=== PATIENT | female | born 1990 | race Caucasian/White ===

== ENCOUNTER 2020-04-09 06:48 | Outpatient (NON) | payer BC, SELFPAY ==
[2020-04-10 01:02] LABS: SARS-CoV-2 RNA PCR Negative
== END 2020-04-09 06:49 ==
LOC: ANHCOVIDDT 06:48
PROVIDERS: Visit Provider Registered Nurse
DX: Z20.828 Contact with and (suspected) exposure to other viral communicable diseases (principal)
CPT/HCPCS: 87635; C9803; U0003

== ENCOUNTER 2021-11-11 12:29 | Outpatient (CLI) | payer BC, SELFPAY ==
--- NOTE | ~2021-11-11 | CT_ITS ---
EXAMINATION: CT brain wo con DATE: 11/11/2021 12:46 INDICATION: Primary stabbing headache TECHNIQUE: Computed tomography (CT) of the head was performed without intravenous contrast. Sagittal and coronal reconstructions were performed. The mA was adjusted according to patient size. Iterative reconstruction technique was employed. The dose-length product was 605.33 mGy-cm. COMPARISON: None FINDINGS: No acute intracranial hemorrhage, acute infarction or abnormal extra axial fluid collection. Ventricl es are normal and symmetric. No mass/mass effect. The orbits, and paranasal sinuses are normal. Small bilateral mastoid effusions. IMPRESSION: 1. Normal brain. No acute intracranial process. Reviewed, dictated and finalized at location A.
== END 2021-11-11 12:30 | disposition home or self-care (01) ==
PROVIDERS: PCP Registered Nurse; Visit Provider Registered Nurse
DX: G44.85 Primary stabbing headache (principal)
CPT/HCPCS: 70450

== ENCOUNTER 2023-02-02 11:40 | Outpatient (CLI) | payer BC, SELFPAY ==
--- NOTE | 2023-02-02 12:02 | ECG_ITS ---
Measurements Intervals [place] Rate: 87 P: 54 OR: 150 QRS: 9 QRSD: 100 T: 27 QT: 377 QTc: 455 Interpretive Statements SINUS RHYTHM INCOMPLETE RIGHT BUNDLE BRANCH BLOCK BORDERLINE T WAVE ABNORMALITY- INFERIOR LEADS BORDERLINE ECG NO PREVIOUS ECG AVAILABLE FOR COMPARISON Electronically Signed On 02-02-2023 13:04:03 CDT by Caesar House D.O.
[2023-02-02 12:29] LABS: Hematocrit 44.2 % (37.0-47.0); Hemoglobin 14.2 g/dL (12.0-15.0); Mean Corpuscular HGB Conc 32.1 g/dl (32-36); Mean Corpuscular Hemoglobin 27.4 pg (26-34); Mean Corpuscular Volume 85.2 fl (80-100); Platelet Count Result 299 k/mm3 (150-375); Red Blood Count 5.19 M/mm3 (4.2-5.4); Red Cell Distribution Width 13.2 % (11.5-14.5); White Blood Count 11.3 K/mm3 (4.5-10.0)
[2023-02-02 12:46] LABS: Alanine Aminotransferase 33 U/L (6-35); Albumin Level 4.9 g/dL (3.5-5.1); Alkaline Phosphatase 71 U/L (38-126); Anion Gap 10 mmol/L (8-16); Aspartate Amino Transferase 31 U/L (14-36); Bilirubin,Total 0.5 mg/dL (0.2-1.3); Blood Urea Nitrogen 13 mg/dL (7-17); Calcium 9.5 mg/dL (8.4-10.2); Carbon Dioxide 26 mmol/L (22-30); Chloride 101 mmol/L (98-107); Estimated Glomerular Filt Rate > 60; Glucose 87 mg/dL (65-110); Potassium 4.4 mmol/L (3.4-5.0); Sodium 137 mmol/L (137-145)
== END 2023-02-02 11:41 | disposition home or self-care (01) ==
LOC: ANHLAB 11:43
PROVIDERS: PCP Registered Nurse; Visit Provider Registered Nurse
DX: Z01.818 Encounter for other preprocedural examination (principal); I45.10 Unspecified right bundle-branch block
CPT/HCPCS: 36415; 80053; 84443; 85027; 93005

== ENCOUNTER 2023-06-25 15:15 | Outpatient (CLI) | payer BC, SELFPAY ==
--- NOTE | ~2023-06-25 | US_ITS ---
Pelvic ultrasound. Clinical History: Abnormal uterine bleeding Technique: Realtime transabdominal and transvaginal scanning of the pelvis was performed. Color flow Doppler and Doppler spectral analysis were performed. Findings: The uterus is anteverted. The endometrial stripe has a thickness of 10 mm. Questionable ad enomyosis of the uterus. The right ovary measures 3.1 x 2.7 x 2.9 cm. No significant right ovarian or adnexal mass is seen. The left ovary measures 3.3 x 2.4 x 2.9 cm. No significant left ovarian or adnexal mass is seen. There is no evidence of free fluid in the cul de sac. Impression: Questionable adenomyosis of the uterus. Reviewed, dictated and finalized at location M. 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
== END 2023-06-25 15:16 ==
PROVIDERS: PCP Nurse Practitioner; Visit Provider Nurse Practitioner
DX: N93.8 Other specified abnormal uterine and vaginal bleeding (principal)
CPT/HCPCS: 76830

== ENCOUNTER 2023-07-30 00:54 | Day surgery (SDC) | payer BC, SELFPAY ==
[2023-07-23 11:52] VITALS: BMI 30.4
--- NOTE | 2023-07-23 11:58 | PC.NURSE ---
Report to the Outpatient Waiting Room, entrance under the green pavilion located off [facility], at time 0600 on date 07/30/23. Planned Procedure Time: 0730. Time changes happen often and if your time is changed the preop area will call you the afternoon before. - You and your visitor will be asked to self-screen and do not enter if you have any COVID symptoms. - A mask is optional within the hospital at this time. Patients may have clear liquids (water, carbonated beverages, clear teas, apple juice) until 3 hours prior to surgery with a maximum of 20 ounces. - No food from midnight until time of surgery Take the following medications with a SIP of water the morning of surgery: BUSPIRONE DO NOT STOP ANY OF YOUR OTHER PRESCRIPTION MEDICATIONS PRIOR TO SURGERY ?EXCEPT THE FOLLOWING Medications to discontinue per physician: N/A Date to take last dose: N/A Please no make-up, nail mauritanian, hairspray, perfume, deodorant, or body powder the day of surgery. No jewelry (including any body piercings) or valuables the day of surgery, leave them at home. Please take a shower or bath the night before, or the morning of, surgery with an antibacterial soap. Wear comfortable, loose fitting clothing. - Jewelry must be removed prior to entering the operating room. Rings and piercings that are not removed may be cut off. - The hospital will not accept responsibility for valuables. - Please leave all valuables, including medications, at home the day of surgery. If you are going home after surgery, a licensed pack train driver must drive you home. - NO public transportation without another adult if you receive anesthesia. - We recommend that an adult stay with you for 24 hours following discharge. - We also recommend that you do not drive, make important decision, drink alcoholic beverages, or take any drugs that were not prescribed by your health care provider for at least 24 hours after your discharge time. Follow any additional instructions given to you from your surgeon. If you or anyone in your household have experienced Covid symptoms in the past week, please notify your surgeon or the nurse liaison at the phone number below for possible testing. Telephone instructions given to PT - ALMITA MORENO and asked if any additional questions and then verbalized understanding. Patient advised to call surgeon office or pre surgery nurse liaison [phone] if any additional questions.
[2023-07-30] MEDS: ACETAMINOPHEN 500 MG TABLET 1000 MG PO (06:17)
[2023-07-30 06:20] VITALS: BP 126/79; PULSE 72; RESP 16; TEMP 36.7; O2SAT 99
--- NOTE | 2023-07-30 06:37 | WPDANESEPPF ---
Anes - Initial Pre Proc Eval Procedure: Operation Date: 07/30/23 07:30 Proposed Procedures p Hysteroscopy Dilation and Curettage - Thais Siu MD Date/Time: 07/30/23 06:37 Surgeon: Thais Siu MD Pre Op Diagnosis: abnormal uterine bleeding Patient Data Age: 33 Gender: F Height: 1.73 m Weight: 90.75 kg Allergies Allergy/AdvReac Type Severity Reaction Status Date / Time No Known Allergies Allergy Unverified 07/30/23 06:13 Home Medications Medication Instructions Recorded Confirmed Type buspirone 10 mg tablet 10 mg PO BID 07/23/23 07/23/23 History sertraline 100 mg tablet 100 mg PO HS 07/23/23 07/23/23 History spironolactone 25 mg tablet 25 mg PO HS 07/23/23 07/23/23 History tranexamic acid 650 mg tablet 1,300 mg PO TID 07/30/23 07/30/23 History Patient hx anesthesia problems: none Family hx anesthesia problems: none Results Review: All pre-operative results and documents have been reviewed as part of the pre-operative evaluation. 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 Informed Consent: The patient's anesthetic plan and its attendant risks and benefits were discussed with the patient/family/POA. Questions were solicited and answers provided to the satisfaction of the patient/family/POA.
[2023-07-30] MEDS: LACTATED RINGERS 1,000 ML 30 ML IV CONT (06:52)
--- NOTE | 2023-07-30 07:19 | WPDHPUPDATE1 ---
History and Physical Update Update Date/Time: 07/30/23 07:19 History and Physical has been reviewed, including an updated exam of the patient. There are NO changes in the patient's condition. Risks, benefits, and alternatives have been discussed and questions answered. Patient agrees to proceed with procedure.
--- NOTE | 2023-07-30 07:19 | PM.HPGS ---
History of Present Illness History of Present Illness Consent: Risks, benefits, and alternatives have been discussed and questions answered. Patient agrees to proceed with procedure. Chief complaint: abnormal uterine bleeding Narrative: Anastasia Mendes is a 33 year old female with constant bleeding since her weight loss surgery in February of 2023. Flow is varied from spotting to heavy flow. Prior to this point the patient had irregular sporadic cycles. The prior 10 years she has been having only 1 to 2 cycles per year. It was recommended to undergo D&C hysteroscopy. Risks of infection, bleeding, perforation, and possible pathology are discussed with the patient. Patient voices understanding and agrees to proceed. Review of Systems Review of Systems: not repeated day of surgery; patient states no changes in status PMFSH Past Medical History Medical History (Updated 07/30/23 @ 07:23 by Thais Siu MD) Depression with anxiety PCOS (polycystic ovarian syndrome) Surgical History Surgical History (Updated 07/30/23 @ 07:22 by Thais Siu MD) History of weight loss surgery 03/19 Family History Family History Grandparent Diabetes mellitus Father Acute myocardial infarction Social History Social History (Updated 06/03/19 @ 11:30 by Cindy Shaw PA-C) Smoking status: Former smoker Tobacco type: e-cigarettes/vaping Smoking end date: 01/26/23 Alcohol intake: never Substance use: current Substance use type: marijuana Living arrangements: with family 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 [employer] Spiritual care concerns: No Meds Home Medications and Allergies Home Medications Medication Instructions Recorded Confirmed Type buspirone 10 mg tablet 10 mg PO BID 07/23/23 07/23/23 History sertraline 100 mg tablet 100 mg PO HS 07/23/23 07/23/23 History spironolactone 25 mg tablet 25 mg PO HS 07/23/23 07/23/23 History tranexamic acid 650 mg tablet 1,300 mg PO TID 07/30/23 07/30/23 History Allergies Allergy/AdvReac Type Severity Reaction Status Date / Time No Known Allergies Allergy Unverified 07/30/23 06:13 Vital Signs Vital Signs - 24 hr 07/30/23 06:20 Temperature 98.1 F Pulse Rate 72 Respiratory Rate 16 Blood Pressure 126/79 Pulse Oximetry 99 Oxygen Delivery Room Air Exam Const: General: healthy appearing and alert Orientation/consciousness: patient oriented x3 : External Female Exam: normal external appearance Speculum Exam - Vagina: normal appearance of the vagina and normal vaginal discharge Speculum Exam - Cervix: normal appearance of the cervix Bimanual exam- vagina & uterus: uterine size normal and consistency normal Bimanual Exam- Adnexa, other: normal adnexae and No adnexal tenderness Neuro: General: patient oriented x3 Assessment and Plan Assessment and plan (1) Menorrhagia: Code(s): N92.0 - Excessive and frequent menstruation with regular cycle Status: Acute Assessment and Plan: plan to proceed with D&C hysteroscopy
[2023-07-30] MEDS: KETOROLAC 30 MG/ML VIAL (*BKC) IV PUSH (07:52)
--- NOTE | 2023-07-30 07:56 | W.PM.PROC2 ---
Procedure Note - Detailed Date of Procedure 07/30/23 Pre-op Diagnosis abnormal uterine bleeding Post-op Diagnosis Same Procedure Performed D&C hysteroscopy Surgeon Thais Siu MD Anesthesia MAC Findings uterus sounds to 9cm and appears grossly normal old blood clots in vaginal vault and uterus Description of Procedure The patient is taken to the operating room and placed under anesthesia in the dorsal lithotomy position. She was prepped and draped in the usual sterile fashion. [facility] speculum was placed in the vagina and the cervix grasped on the anterior lip with a tenaculum. The uterus is sounded to 9cm. The diagnostic hysteroscope was placed. Once the blood clots are washed out, the endometrium appears grossly normal. The hysteroscope was removed. The OO sharp curette is used to curette the endometrium until a good uterine cry was noted in all areas. Instruments are removed. Sponge, needle, and instrument counts are correct per the OR staff. Patient was awakened from anesthesia and taken to recovery in stable condition. Estimated Blood Loss 5 Drains No Packing No Pathology Yes ( Endometrial curettings) Complications No immediate complications Condition Stable Disposition PACU
[2023-07-30 07:58] VITALS: BP 105/62; PULSE 67; RESP 18; O2SAT 95
[2023-07-30 08:20] VITALS: BP 90/49; PULSE 65; RESP 18; O2SAT 98
[2023-07-30 08:50] VITALS: BP 107/75; PULSE 68; RESP 16
== END 2023-07-30 08:59 | disposition home or self-care (01) ==
PROVIDERS: PCP Nurse Practitioner; Visit Provider Obstetrics & Gynecology Gynecology
PROC: 0U5B8ZZ Destruction of Endometrium, Via Natural or Artificial Opening Endoscopic (ICD-10-PCS; CPT 58563; principal; 2023-07-30 07:30)
DX: N92.0 Excessive and frequent menstruation with regular cycle (principal); E28.2 Polycystic ovarian syndrome; F41.8 Other specified anxiety disorders; F12.90 Cannabis use, unspecified, uncomplicated; E66.9 Obesity, unspecified; Z68.30 Body mass index [BMI] 30.0-30.9, adult; Z98.84 Bariatric surgery status; Z87.891 Personal history of nicotine dependence; Z82.49 Family history of ischemic heart disease and other diseases of the circulatory system
CPT/HCPCS: 58558; 88305; A9270; J1885; J2250; J2704; J3010; J7120

== ENCOUNTER 2024-01-11 08:01 | Outpatient (CLI) | payer BC, SELFPAY ==
[2024-01-11 08:36] LABS: Hematocrit 39.2 % (37.0-47.0); Hemoglobin 12.6 g/dL (12.0-15.0)
== END 2024-01-11 08:02 | disposition home or self-care (01) ==
LOC: ANHSURGERY 08:06
PROVIDERS: PCP Registered Nurse; Visit Provider Obstetrics & Gynecology Gynecology
DX: Z01.812 Encounter for preprocedural laboratory examination (principal); N92.0 Excessive and frequent menstruation with regular cycle
CPT/HCPCS: 36415; 85014; 85018; 86850; 86900; 86901

== ENCOUNTER 2024-01-12 03:35 | Emergency (ER) | payer BC, SELFPAY ==
[2024-01-12] VITALS (11 sets, daily range): BP systolic 111–140; BP diastolic 54–86; PULSE 49–82; RESP 11–20; TEMP 36.4; O2SAT 97–100
--- NOTE | ~2024-01-12 | CT_ITS ---
EXAMINATION: CTA chest PE abdomen pel DATE: 01/12/2024 08:53 INDICATION: Chest pain, abdominal pain and back pain. TECHNIQUE: Computed tomography (CT) pulmonary angiogram of the chest was performed with 100 mL Omnipa que-350 intravenous contrast. Additional 3D reconstructions utilizing coronal maximum intensity proje ction (MIP) were performed. CT of the abdomen and pelvis was performed with intravenous contrast util izing the same contrast bolus following a short delay. Automated exposure control and iterative recon struction technique were employed. The dose-length product was 756.22 mGy-cm. COMPARISON: None FINDINGS: Chest: No pulmonary embolism. No pneumonia, pulmonary edema or other pulmonary infiltrates. No pleural effus ion or pneumothorax. Heart size is normal. No pericardial effusion. Thoracic aorta is normal in calib er with no dissection. No pathologically enlarged thoracic lymphadenopathy. Chronic appearing mild an terior wedging at T7 and T11. Abdomen/pelvis: Postoperative change of prior sleeve gastrectomy with suture line along the greater curvature of the stomach. Mild diffuse periportal edema. Gallbladder is distended but without evident wall thickening or pericholecystic inflammatory stranding to suggest acute cholecystitis. Spleen, pancreas, bilateral adrenal glands and kidneys are normal. Bowels including the appendix are normal. Bladder, anteverted uterus and bilateral adnexa are unremarkable. Tampon within the vaginal vault. Minimal likely physio logic free fluid in the cul-de-sac. No abscess or free intraperitoneal gas. No pathologically enlarge d abdominal or pelvic lymphadenopathy. Bones are unremarkable. IMPRESSION: 1. No pulmonary embolism or other acute cardiopulmonary disease. 2. Diffuse mild periportal edema in the liver. This can be seen in the setting of acute hepatitis, ch olangitis, congestive heart failure, acute pyelonephritis and aggressive fluid resuscitation. Reviewed, dictated and finalized at location A. IMPRESSION: 1. No pulmonary embolism or other acute cardiopulmonary disease. 2. Diffuse mild periportal edema in the liver. This can be seen in the setting of acute hepatitis, cholangitis, congestive heart failure, acute pyelonephritis and aggressive fluid resuscitation.
--- NOTE | ~2024-01-12 | XR_ITS ---
EXAMINATION: XR chest 2V DATE: 01/12/2024 06:12 INDICATION: Midline chest pain TECHNIQUE: PA and lateral views of the chest were obtained. COMPARISON: None FINDINGS: The lungs are clear with no focal airspace opacities, pulmonary edema, pleural effusion or pneumothor ax. The cardiomediastinal silhouette is normal. Mild thoracic spondylosis. Surgical clips and suture line in the epigastric region. IMPRESSION: 1. No acute cardiopulmonary disease. Reviewed, dictated and finalized at location A.
--- NOTE | 2024-01-12 03:40 | ECG_ITS ---
Test Date: 2024-01-12 03:43:18 Measurements Intervals [place] Rate: 74 P: 66 RI: 160 QRS: 57 QRSD: 99 T: 45 QT: 390 QTc: 435 Interpretive Statements SINUS RHYTHM NORMAL ELECTROCARDIOGRAM No previous ECG available for comparison Electronically Signed On 01-12-2024 09:38:31 CDT by Satinder Lema M.D.
--- NOTE | 2024-01-12 06:10 | PC.NURSE ---
Patient taken to xray at this time via w/c.
[2024-01-12 06:36] LABS: Alanine Aminotransferase 79 U/L (6-35); Alkaline Phosphatase 102 U/L (38-126); Anion Gap 12 mmol/L (4-12); Aspartate Amino Transferase 161 U/L (14-36); Bilirubin,Total 0.8 mg/dL (0.2-1.3); Blood Urea Nitrogen 7 mg/dL (7-17); Calcium 9.9 mg/dL (8.4-10.2); Carbon Dioxide 28 mmol/L (22-30); Chloride 102 mmol/L (98-107); Estimated CRCL calculation 98 ml/min; Estimated Glomerular Filt Rate > 60; Glucose 90 mg/dL (65-110); Lipase 106 U/L (23-300); Sodium 142 mmol/L (137-145)
[2024-01-12 06:37] LABS: Basophils Percent Auto 0.2 % (0.2-1.2); Eosinophils Percent Auto 0.3 % (0-4.4); Hematocrit 43.4 % (37.0-47.0); Hemoglobin 14.1 g/dL (12.0-15.0); Immature Granulocyte Absolute 0.02 K/mm3 (0.00-0.031); Immature Granulocyte Percent A 0.2 % (0-0.5); Lymphocytes Absolute Auto 1.67 K/mm3 (0.9-3.2); Lymphocytes Percent Auto 17.2 % (18.3-44.2); Mean Corpuscular HGB Conc 32.5 g/dl (32-36); Mean Corpuscular Hemoglobin 27.9 pg (26-34); Mean Corpuscular Volume 85.9 fl (80-100); Mean Platelet Volume 10.4 fl (7.4-10.4); Monocytes Absolute Auto 0.5 K/mm3 (0.1-0.6); Monocytes Percent Auto 5.6 % (2.6-8.5); Neutrophils Absolute Auto 7.4 K/mm3 (1.3-6.7); Neutrophils Percent Auto 76.5 % (45.5-73.1); Platelet Count Result 240 k/mm3 (150-375); Red Blood Count 5.05 M/mm3 (4.2-5.4); Red Cell Distribution Width 13.2 % (11.5-14.5); White Blood Count 9.7 K/mm3 (4.5-10.0)
[2024-01-12 06:42] LABS: INR 1.1; Prothrombin Time 14.2 Seconds (11.1-14.7)
[2024-01-12 06:43] LABS: Partial Thromboplastin Time 25.9 Seconds (22.3-36.8)
[2024-01-12 06:47] LABS: Troponin I < 0.012 ng/mL (0.000-0.034)
--- NOTE | 2024-01-12 07:42 | ED.CHESTPAIN ---
HPI - Chest Pain General Chief Complaint: Chest Pain Stated Complaint: chest pain Time Seen by Provider: 01/12/24 06:51 History of Present Illness HPI narrative: [age] old female presents to the emergency department for evaluation for chest pain that started approximately 2:00 a.m.. Patient states she was sleeping when she had onset epigastric burning. Patient states that the burning worsened to the point where she was lying on her floor crying. Did call a family member to help her to the emergency department. 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 Patient did state that she did have some drinks over the past 2 days which was increased a little for her. Related Data Home Medications Medication Instructions Recorded Confirmed sertraline 100 mg tablet 100 mg PO DAILY 07/23/23 01/07/24 levonorgestrel 0.1 mg-ethinyl 1 tablet PO DAILY 01/07/24 01/07/24 estradiol 20 mcg chewable tablet (Tyblume) Allergies Allergy/AdvReac Type Severity Reaction Status Date / Time No Known Allergies Allergy Verified 01/12/24 03:39 Review of Systems Review of Systems: All systems reviewed & are unremarkable except as noted in HPI and below PMFSH Past Medical History Medical History (Updated 01/12/24 @ 11:55 by Polo Brewer MD) Depression with anxiety PCOS (polycystic ovarian syndrome) Surgical History Surgical History (Updated 07/30/23 @ 07:22 by Thais Siu MD) History of weight loss surgery 03/19 Family History Family History Grandparent Diabetes mellitus Father Acute myocardial infarction Social History Social History (Updated 06/03/19 @ 11:30 by Cindy Shaw PA-C) Years smoked: 6 Smoking status: Current every day smoker Tobacco type: e-cigarettes/vaping Alcohol intake: current Drinks per week: 5 Living arrangements: alone 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 EYES: PERRLA/EOMI, conjunctivae clear. NOSE: Normal no drainage EARS:TMS clear with good light reflex. THROAT: Pharynx clear, no exudate. NECK: Supple. No adenopathy, no masses. RESPIRATORY: Airway patent, respirations nonlabored. Clear to auscultation bilaterally, no rales, rhonchi, wheezing. CARDIOVASCULAR: Regular rate and rhythm without murmurs rubs or gallops. ABDOMINAL: Mild epigastric tenderness to palpation MUSCULOSKELETAL: Moves all extremities. Strength/ROM intact, No edema, No calf tenderness. NEURO: Alert. Cranial nerves II through XII intact. Grossly intact SKIN: Warm, dry. Normal Color Course Course Emergency Course: Patient fell improved with treatment and was discharged to home with GI Vital Signs Vital signs: Vital Signs Temperature 97.6 F 01/12/24 03:36 Pulse Rate 78 01/12/24 03:36 Respiratory Rate 18 01/12/24 03:36 Blood Pressure 129/67 01/12/24 03:36 Pulse Oximetry 100 01/12/24 03:36 Oxygen Delivery Room Air 01/12/24 03:36 Temperature 97.6 F 01/12/24 03:36 Pulse Rate 54 L 01/12/24 12:20 Respiratory Rate 16 01/12/24 12:20 Blood Pressure 111/75 01/12/24 12:20 Pulse Oximetry 99 01/12/24 12:20 Oxygen Delivery Room Air 01/12/24 03:36 MDM - Chest Pain MDM Narrative Medical decision making narrative: [age] old female presenting to the emergency department for evaluation for epigastric and chest pain. Patient is currently afebrile with no leukocytosis and a stable hemoglobin of 14.1. Patient's INR is 1.1. Patient has no acute abnormalities on her CMP patient does have mildly elevated AST and ALT. Patient does admit to drinking the last [address] scan was concerning for possible cystitis but UA was negative for
[2024-01-12] MEDS: BELLADONNA ALK/PHENOB ELIX 10 ML, MAG HYDROX/ALUMINUM HYD/SIMETH 30 ML, LIDOCAINE HCL 2... PO (07:49)
[2024-01-12] MEDS: PANTOPRAZOLE SODIUM IV 40 MG VIAL IV PUSH (07:49)
[2024-01-12] MEDS: HYDROmorphone HCL INJ (*CRX) 1 MG/ML SYR 0.5 MG IV PUSH (08:52)
[2024-01-12 09:40] LABS: Ethanol < 10 mg/dL (<10)
[2024-01-12 09:51] LABS: Troponin I < 0.012 ng/mL (0.000-0.034)
[2024-01-12 11:07] LABS: Add Urine Microscopic? NO; Appearance Urine Clear (Clear); Bilirubin Urine Negative (Negative); Blood Urine Negative (Negative); Color Urine Yellow (Yellow); Glucose Urine UA Negative (Negative); Ketones Urine Negative (Negative); Leukocyte Esterase Ur Negative LEU/UL (Negative); Nitrate Urine Negative (Negative); Protein Urine Negative (Negative); Specific Grav Ur 1.015 (1.001-1.035); pH Urine 6.5 (5.0-9.0)
== END 2024-01-12 12:20 | disposition home or self-care (01) ==
PROVIDERS: Student in an Organized Health Care Education/Training Program; Emergency Provider Emergency Medicine; PCP Registered Nurse
DX: R10.13 Epigastric pain (principal); E28.2 Polycystic ovarian syndrome; F41.8 Other specified anxiety disorders; F17.290 Nicotine dependence, other tobacco product, uncomplicated; Z98.84 Bariatric surgery status; Z79.899 Other long term (current) drug therapy; R93.2 Abnormal findings on diagnostic imaging of liver and biliary tract
CPT/HCPCS: 36415; 71046; 71275; 74177; 80053; 80307; 81003; 83690; 84484; 85025; 85610; 85730; 93005; 96374; 96375; 99284; A9270; J1170; J2470; Q9967

== ENCOUNTER 2024-01-14 11:08 | Inpatient (IN) | payer BC, SELFPAY ==
--- NOTE | 2024-01-07 10:44 | SUR.PREOP ---
Report to the Outpatient Waiting Room, entrance under the green pavilion located off [facility], at time 0600 on date 01/14/24. Planned Procedure Time: 0730. Time changes happen often and if your time is changed the preop area will call you the afternoon before. - You and your visitor will be asked to self-screen and do not enter if you have any COVID symptoms. - A mask is optional within the hospital at this time. Patients may have clear liquids (water, carbonated beverages, clear teas, apple juice) until 3 hours prior to surgery with a maximum of 20 ounces. - NO CLEAR LIQUIDS AFTER 0430 - No food from midnight until time of surgery - Infants may have breast milk until 4 hours before surgery, formula 6 hours prior to surgery. - Children will be allowed to drink immediately following surgery. If applicable, please bring a bottle or sippy cup to assist with drinking. Juice, water, soda, and popsicles are readily available. For infants on formula, please bring formula the day of surgery. Pacifiers are allowed. Take the following medications with a SIP of water the morning of surgery: SERTRALINE, TYBLUME DO NOT STOP ANY OF YOUR OTHER PRESCRIPTION MEDICATIONS PRIOR TO SURGERY ?EXCEPT THE FOLLOWING Medications to discontinue per physician N/A Date to take last dose Please no make-up, nail malay, hairspray, perfume, deodorant, or body powder the day of surgery. No jewelry (including any body piercings) or valuables the day of surgery, leave them at home. Please take a shower or bath the night before, or the morning of, surgery with an antibacterial soap. Wear comfortable, loose fitting clothing. Children are encouraged to wear pajamas. - Jewelry must be removed prior to entering the operating room. Rings and piercings that are not removed may be cut off. - The hospital will not accept responsibility for valuables. - Please leave all valuables, including medications, at home the day of surgery. If you are going home after surgery, a licensed cdl a driver must drive you home. - NO public transportation without another adult if you receive anesthesia. - We recommend that an adult stay with you for 24 hours following discharge. - We also recommend that you do not drive, make important decision, drink alcoholic beverages, or take any drugs that were not prescribed by your health care provider for at least 24 hours after your discharge time. For Pediatric surgeries, we recommend two adults accompany the child home. Follow any additional instructions given to you from your surgeon. If you or anyone in your household have experienced Covid symptoms in the past week, please notify your surgeon or the nurse liaison at the phone number below for possible testing. Telephone instructions given to CHRIS MORENO and asked if any additional questions and then verbalized understanding. Patient advised to call surgeon office or pre surgery nurse liaison [phone] if any additional questions.
[2024-01-07 10:55] VITALS: BMI 23.6
[2024-01-14] VITALS (18 sets, daily range): BP systolic 107–157; BP diastolic 70–96; PULSE 55–83; RESP 12–20; TEMP 36.3–37.9; O2SAT 94–100; BMI 22.6
[2024-01-14] MEDS: KETOROLAC 15 MG/ML VIAL (*BKC) IV PUSH (06:35)
[2024-01-14] MEDS: ACETAMINOPHEN 500 MG TABLET 1000 MG PO (06:35)
[2024-01-14] MEDS: LACTATED RINGERS 1,000 ML 30 ML IV CONT ×3 (06:56→10:56)
--- NOTE | 2024-01-14 06:58 | P.PNAN_ITS ---
Anes - Initial Pre Proc Eval Procedure: Operation Date: 01/14/24 07:30 Proposed Procedures p Total Abdominal Hysterectomy - Thais Siu MD Date/Time: 01/14/24 06:58 Surgeon: Thais Siu MD Pre Op Diagnosis: Menorrhagia Patient Data Age: 33 Gender: F Height: 1.73 m Weight: 67.6 kg Last Vital Signs Temp 97.3 F L 01/14/24 06:45 Pulse 83 01/14/24 06:45 Resp 16 01/14/24 06:45 BP 119/75 01/14/24 06:45 Pulse Ox 99 01/14/24 06:45 O2 Del Method Room Air 01/14/24 06:45 Allergies Allergy/AdvReac Type Severity Reaction Status Date / Time No Known Allergies Allergy Verified 01/14/24 06:33 Home Medications Medication Instructions Recorded Confirmed Type sertraline 100 mg tablet 100 mg PO DAILY 07/23/23 01/14/24 History levonorgestrel 0.1 mg-ethinyl 1 tablet PO DAILY 01/07/24 01/07/24 History estradiol 20 mcg chewable tablet (Tyblume) omeprazole 20 mg capsule,delayed 20 mg PO DAILY 14 days #14 caps 01/12/24 Rx release Patient hx anesthesia problems: other (Pt reports occ delayed emergence in the past, nothing that required unexpected admission. ) Family hx anesthesia problems: none Results Review: All pre-operative results and documents have been reviewed as part of the pre- operative evaluation. 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 Pt active w 1-2 fos, no cp or sob. Pt vapes daily. Informed Consent: The patient's anesthetic plan and its attendant risks and benefits were discussed with the patient/family/POA. Questions were solicited and answers provided to the satisfaction of the patient/family/POA.
--- NOTE | 2024-01-14 07:01 | WPDHPUPDATE1 ---
History and Physical Update Update Date/Time: 01/14/24 07:01 History and Physical has been reviewed, including an updated exam of the patient. There are NO changes in the patient's condition. Risks, benefits, and alternatives have been discussed and questions answered. Patient agrees to proceed with procedure.
--- NOTE | 2024-01-14 07:01 | PM.IMHP ---
H&P: HPI History of Present Illness Date/Time: 01/14/24 07:01 Chief Complaint: Menorrhagia Narrative: The patient is a 33-year-old with menorrhagia. The patient underwent D&C hysteroscopy benign findings. Pelvic ultrasound shows adenomyosis. Patient tried combination vaginal ring as well as Lysteda without help. Options were reviewed and patient has elected to proceed with hysterectomy. Route of surgery was discussed and the plan is to proceed with total abdominal hysterectomy. Risks of infection, bleeding, perforation, and possible pathology are discussed. Patient voices understanding and agrees to proceed. Review of Systems Review of Systems: not repeated day of surgery; patient states no changes in status PMF Past Medical History Medical History Depression with anxiety PCOS (polycystic ovarian syndrome) Surgical History Surgical History (Updated 01/14/24 @ 07:05 by Thais Siu MD) History of hysteroscopy July of 2023 History of weight loss surgery 03/19 Family History Family History Grandparent Diabetes mellitus Father Acute myocardial infarction Social History Social History Years smoked: 6 Smoking status: Current every day smoker Tobacco type: e-cigarettes/vaping Alcohol intake: current Drinks per week: 5 Living arrangements: alone 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 Spiritual care concerns: No Meds Home Medications and Allergies Home Medications Medication Instructions Recorded Confirmed Type sertraline 100 mg tablet 100 mg PO DAILY 07/23/23 01/14/24 History levonorgestrel 0.1 mg-ethinyl 1 tablet PO DAILY 01/07/24 01/07/24 History estradiol 20 mcg chewable tablet (Tyblume) omeprazole 20 mg capsule,delayed 20 mg PO DAILY 14 days #14 caps 01/12/24 Rx release Allergies Allergy/AdvReac Type Severity Reaction Status Date / Time No Known Allergies Allergy Verified 01/14/24 06:33 Vital Signs Vital Signs - 24 hr 01/14/24 06:45 Temperature 97.3 F L Pulse Rate 83 Respiratory Rate 16 Blood Pressure 119/75 Pulse Oximetry 99 Oxygen Delivery Room Air Exam Const: General: healthy appearing and alert Orientation/consciousness: patient oriented x3 Resp: Effort & Inspection: normal respiratory effort GI: GI Palp: Yes Soft to palpation, No Tenderness to palpation present (GI) and No Palpable mass present : External Female Exam: normal external appearance Speculum Exam - Vagina: normal appearance of the vagina and normal vaginal discharge Speculum Exam - Cervix: normal appearance of the cervix Bimanual exam- vagina & uterus: uterine size normal and consistency normal Bimanual Exam- Adnexa, other: normal adnexae and No adnexal tenderness Neuro: General: patient oriented x3 Assessment and Plan Assessment and plan (1) Menorrhagia: Code(s): N92.0 - Excessive and frequent menstruation with regular cycle Status: Acute Assessment and Plan: plan to proceed with total abdominal hysterectomy
[2024-01-14] MEDS: ceFAZolin 2 GM/D5W 50 ML 2 GM/50 ML BAG IVPB (07:21)
--- NOTE | 2024-01-14 08:31 | W.PM.PROC2 ---
Procedure Note - Detailed Date of Procedure 01/14/24 Pre-op Diagnosis Menorrhagia Post-op Diagnosis Same Procedure Performed Total abdominal hysterectomy Surgeon Thais Siu MD Anesthesia General Findings normal-appearing tubes, ovaries, uterus Description of Procedure The patient is taken to the operating room and placed under anesthesia in the dorsal supine position. She was prepped and draped in the usual sterile fashion. Pfannenstiel skin incision was made with a scalpel and carried down to underlying layer of fascia which was nicked in the midline. Bleeding vessels in the subcutaneous tissue were cauterized for hemostasis. The incision was extended laterally with Sheridan scissors. Ochsner was used to tent the fascia which was then dissected off using sharp and blunt dissection. The rectus muscles are in the midline and the peritoneum entered with a Peon. The incision was extended with blunt traction. The bowel was packed away using moist laparotomy sponges. The Bertrand retractor was placed with a flexible center blade. The uterus is grasped on the cornu with peons. The round ligaments were doubly ligated with 0 Vicryl, transected, and the anterior leaf of the broad ligament incised meeting in the midline. The bladder flap was dissected off the lower uterine segment with a moist sponge stick. A Skip is used to retract the bladder. A window was created in the posterior leaf of the broad ligament and the utero-ovarian ligament doubly clamped with Z clamps. The pedicle it is transected and suture ligated with 0 Vicryl. The uterine vessels are skeletonized, clamped with Z clamps, transected, and suture ligated with 0 Vicryl. The cardinal and uterosacral ligaments are serially clamped, transected, and suture ligated with 0 Vicryl. The uterosacral ligaments were tagged for future use. The vaginal cuff was entered anteriorly with the scalpel. The vaginal cuff was grasped with Allis clamps as specimen was amputated using Sameera scissors. The specimen is handed off and the vaginal cuff was closed using 0 Vicryl in a running locked fashion. Two additional [id number] sutures were required in the midline for hemostasis. The pelvis is irrigated all pedicles were noted to be hemostatic. Sponges and instruments are removed. The fascia was closed using 0 Vicryl in a running fashion. Subcutaneous tissues were irrigated and made hemostatic using Bovie cautery. Skin is closed using 4-0 Vicryl in a subcuticular fashion. Dermaflex was placed over the incision. Sponge, needle, and instrument counts are correct per the OR staff. The patient was awakened from anesthesia and taken to recovery in stable condition. The patient was given Ancef prior to incision. Estimated Blood Loss 50 Drains Yes ( Marc catheter) Packing No Pathology Yes ( uterus) Complications No immediate complications Condition Stable Disposition PACU
--- NOTE | 2024-01-14 08:36 | PM.DS ---
DS: Admitting Diagnosis Discharge Date 01/17/24 Admitting Diagnosis menorrhagia with suspected adenomyosis DS: Discharge Diagnosis Discharge Diagnosis (1) Status post total abdominal hysterectomy: Code(s): Z90.710 - Acquired absence of both cervix and uterus Status: Acute DS: Summary Hospital Course Hospital Course: Post operatively the patient had significant nausea and borderline urine output. Postoperative day 1 Hemoglobin was 6.9. Patient returned to the operating room for exploratory laparotomy. No active bleeding was identified and [id number] of clot was evacuated. The vaginal cuff and the peritoneum near the ovaries were oversewn. Patient did receive 3units of packed red blood cells. At the time of discharge, the patient was tolerating regular diet, voiding, and ambulating without difficulty. Pain is under good control. Patient had elevated liver function tests on 01/11 after an episode of gastric distress and drinking alcohol. Her liver function tests have normalized during hospital stay but it is recommended she follow-up with her primary physician and to abstain from alcohol. Status at Discharge Functional status at discharge: independent ambulation Overall status at discharge: patient is progressing back to baseline Time Spent with Patient Time attestation: Total time spent providing and/or coordinating discharge services: DS: Data Data Completed and Pending Pending studies at discharge: Pending at discharge 01/14/24 08:09 Surgical [PTH] Routine Discharge Plan Discharge Attending physician on discharge: Thais Siu Consulting providers: Reymundo Ahuja; Darius Cody; Scarlet Reyes; Raúl Erickson Discharging Clinician: Thais Siu Anticipated Discharge Date/Time: 01/16/24 07:42 Patient Disposition: Home, Self-Care Activity: may shower, may drive after 2 weeks and pelvic rest Diet: as tolerated Wound Care Instructions: incision open to air Patient Instructions: Hysterectomy (DC), Exploratory Laparotomy (DC) Stand Alone Forms: General Discharge Instructions Follow-up/Referrals: Thais Siu MD [Physician] - (1 week incision check) Discharge Medications: New hydrocodone-acetaminophen 5-325 mg Tablet 1 tablet PO Q3H PRN (Reason: Pain Rated 5 Or Less) 7 Days Qty: 15 0RF ferrous sulfate [Feosol] 325 mg (65 mg iron) tablet 325 mg PO BID Qty: 60 1RF Continued sertraline 100 mg tablet 100 mg PO DAILY omeprazole 20 mg capsule,delayed release(DR/EC) 20 mg PO DAILY 14 Days Qty: 14 0RF Discontinued Tyblume 0.1 mg- 20 mcg Tablet,Chewable 1 tablet PO DAILY Date of admission: 01/14/24 11:08 Primary Care Provider: Kari,Chelsie Admitting Provider: Thais Siu Attending physician on admission: Thais Siu Condition: Stable
[2024-01-14] MEDS: fentaNYL CITRATE INJ (*CRX) 100 MCG/2 ML VIAL 25 MCG IV PUSH ×8 (09:15→11:04)
[2024-01-14] MEDS: HYDROmorphone HCL INJ (*CRX) 1 MG/ML SYR 0.25 MG IV PUSH ×4 (10:02→10:10)
[2024-01-14 10:33] LABS: BEDSIDEPREGUCG Negative
[2024-01-14] MEDS: FAMOTIDINE 20 MG TABLET PO (11:44)
[2024-01-14] MEDS: SIMETHICONE 80 MG TAB.CHEW PO ×2 (11:44→16:47)
[2024-01-14] MEDS: DEXTROSE 5%/LACTATED RINGERS 1,000 ML 125 ML IV CONT ×3 (11:45→23:35)
[2024-01-14] MEDS: KETOROLAC 30 MG/ML VIAL (*BKC) IV PUSH ×2 (11:45→19:28)
--- NOTE | 2024-01-14 14:03 | ADMGEN ---
1115-This patient, Anastasia Mendes, was admitted to OB 2nd Floor Room 289-00. Patient/family oriented to hospital policies and general routines including ID bracelet, bed and alarms, visiting hours, pain management, procedures, bathroom and other care routines, personal items, smoking policy, room service/diet, and visiting hours. Information on how to activate the Rapid Response Team has been discussed. Patient/Family are encouraged to report perceived risks to care and to ask questions if they do not understand what they are told or what they should do.
[2024-01-14] MEDS: ONDANSETRON INJ 4 MG/2 ML VIAL IV PUSH ×2 (14:13→19:22)
[2024-01-14] MEDS: HYDROcodone/acetaminophen (*CRX) 10-325 MG TABLET 1 TAB PO (15:12)
[2024-01-14] MEDS: PROCHLORPERAZINE EDISYLATE 10 MG/2 ML VIAL IV PUSH (22:28)
[2024-01-15] VITALS (11 sets, daily range): BP systolic 104–147; BP diastolic 53–88; PULSE 71–106; RESP 16–18; TEMP 36.5–38.3; O2SAT 96–100
[2024-01-15] MEDS: HYDROcodone/acetaminophen (*CRX) 5-325 MG TABLET 1 TAB PO ×4 (00:27→20:50)
[2024-01-15] MEDS: FAMOTIDINE 20 MG TABLET PO ×3 (00:27→20:51)
[2024-01-15] MEDS: KETOROLAC 30 MG/ML VIAL (*BKC) IV PUSH (01:40)
[2024-01-15] MEDS: HYDROcodone/acetaminophen (*CRX) 10-325 MG TABLET 1 TAB PO (03:36)
[2024-01-15] MEDS: DEXTROSE 5%/LACTATED RINGERS 1,000 ML 200 ML IV CONT (04:08)
[2024-01-15] MEDS: FUROSEMIDE INJ 40 MG/4 ML VIAL 10 MG IV PUSH (04:29)
[2024-01-15 05:51] LABS: Basophils Percent Auto 0.1 % (0.2-1.2); Hematocrit 21.7 % (37.0-47.0); Immature Granulocyte Absolute 0.07 K/mm3 (0.00-0.031); Immature Granulocyte Percent A 0.5 % (0-0.5); Lymphocytes Absolute Auto 1.83 K/mm3 (0.9-3.2); Lymphocytes Percent Auto 13.7 % (18.3-44.2); Mean Corpuscular HGB Conc 31.8 g/dl (32-36); Mean Corpuscular Hemoglobin 27.8 pg (26-34); Mean Corpuscular Volume 87.5 fl (80-100); Mean Platelet Volume 10.8 fl (7.4-10.4); Monocytes Absolute Auto 1.1 K/mm3 (0.1-0.6); Neutrophils Absolute Auto 10.4 K/mm3 (1.3-6.7); Neutrophils Percent Auto 77.7 % (45.5-73.1); Platelet Count Result 260 k/mm3 (150-375); Red Blood Count 2.48 M/mm3 (4.2-5.4); Red Cell Distribution Width 13.2 % (11.5-14.5); White Blood Count 13.4 K/mm3 (4.5-10.0)
[2024-01-15 06:00] LABS: Hemoglobin 6.9 g/dL (12.0-15.0)
--- NOTE | 2024-01-15 06:45 | PC.NURSE ---
To OR per bed, IV saline locked.
--- NOTE | 2024-01-15 06:57 | PM.GYNPNOP ---
TELECASTING TECHNICIAN - A/P Assessment and plan (1) Postoperative hemorrhage: Status: Acute Assessment and Plan: Although vital signs have been stable throughout the postoperative, the patient a hemoglobin of 6.6. Patient with a likely intra-abdominal bleed. Plan to proceed to the operating room for exploratory laparotomy. Surgery discussed with the patient and she agrees to proceed. Postoperative Procedures: Procedures Operation Date: 01/14/24 07:30 Actual Procedure Side Surgeon p Total Abdominal Hysterectomy Not Applicable Thais Siu MD Operation Date: 01/15/24 07:30 <No data on this case meets the specified criteria> Postoperative day: 1 Postoperative status: anemia (Hb 6.6) Time Spent With Patient Time: Total time spent is greater than 50% in coordination of care (as documented) at patient's floor/unit and/or counseling patient: Time with patient: less than 15 minutes TELECASTING TECHNICIAN- PN:Subj Post-Op Subjective Date/time seen: 01/15/24 06:57 Subjective: pain is well controlled and patient reports nausea (Pre of medication) Exam Narrative: abdomen soft, nt, nd peripad-dry TELECASTING TECHNICIAN - PN: Obj Data Vital Signs Vital Signs: Vital Signs - 24 hr 01/14/24 08:38 01/14/24 08:45 01/14/24 09:00 Temperature 97.8 F Pulse Rate 72 55 L 55 L Respiratory Rate 12 19 20 Blood Pressure 157/84 H 148/86 H 148/86 H Pulse Oximetry 100 100 100 Oxygen Delivery Simple Face Mask Simple Face Mask Simple Face Mask Oxygen Flow Rate 8 8 8 01/14/24 09:15 01/14/24 09:30 01/14/24 09:45 Temperature Pulse Rate 56 L 57 L 59 L Respiratory Rate 17 16 17 Blood Pressure 154/96 H 138/74 149/70 H Pulse Oximetry 100 100 95 Oxygen Delivery Simple Face Mask Simple Face Mask Room Air Oxygen Flow Rate 8 8 01/14/24 10:00 01/14/24 10:15 01/14/24 10:30 Temperature Pulse Rate 67 61 60 Respiratory Rate 12 16 17 Blood Pressure 155/78 H 151/83 H 149/82 H Pulse Oximetry 96 94 95 Oxygen Delivery Room Air Room Air Room Air Oxygen Flow Rate 01/14/24 10:45 01/14/24 11:00 01/14/24 11:20 Temperature 98.7 F Pulse Rate 72 60 62 Respiratory Rate 12 14 16 Blood Pressure 145/88 H 132/77 140/79 Pulse Oximetry 95 100 100 Oxygen Delivery Room Air Nasal Cannula Oxygen Flow Rate 2 01/14/24 12:00 01/14/24 14:15 01/14/24 16:15 Temperature 98.1 F 97.9 F Pulse Rate 62 64 Respiratory Rate 16 16 Blood Pressure 119/79 Pulse Oximetry 100 100 Oxygen Delivery Nasal Cannula Oxygen Flow Rate 2 01/14/24 16:15 01/14/24 18:35 01/14/24 23:55 Temperature 98.5 F 100.3 F H Pulse Rate 64 76 75 Respiratory Rate 16 16 16 Blood Pressure 107/78 128/90 Pulse Oximetry 100 100 100 Oxygen Delivery Nasal Cannula Oxygen Flow Rate 1 01/15/24 03:35 Temperature 100.9 F H Pulse Rate 92 Respiratory Rate 16 Blood Pressure 124/78 Pulse Oximetry 98 Oxygen Delivery Oxygen Flow Rate Intake/Output Intake/Output: Intake & Output 01/12/24 01/13/24 01/14/24 01/15/24 23:59 23:59 23:59 23:59 Intake Total 3695.0 618.8 Output Total 460 105 Balance 3235.0 513.8 Meds/Results Medications: Active Medications Generic Name Dose Route Start Last Admin Trade Name Freq PRN Reason Stop Dose Admin Hydrocodone Bitart/Acetaminophen 1 tab 01/14/24 11:08 01/15/24 03:36 Hydrocodone/Acetaminophen (*Crx) 10-325 Mg Tablet PO 1 tab Q3H PRN Administration Pain Rated 6 or Greater Hydrocodone Bitart/Acetaminophen 1 tab 01/14/24 11:08 01/15/24 00:27 Hydrocodone/Acetaminophen (*Crx) 5-325 Mg Tablet PO 1 tab Q3H PRN Administration Pain Rated 5 or Less Famotidine 20 mg 01/15/24 00:25 01/15/24 00:27 Famotidine 20 Mg Tablet PO 20 mg Q12HR LEONIDAS Administration Dextrose/Lactated Ringer's 1,000 mls @ 200 mls/hr 01/14/24 11:08 01/15/24 04:08 Dextrose 5%/Lactated Ringers IV CONT 200 mls/hr .Q5H LEONIDAS Administration Ibuprofen 600 mg 01/14/24 11:08 Ibuprofen 600 Mg Tablet P
[2024-01-15] MEDS: LACTATED RINGERS 1,000 ML 30 ML IV CONT ×2 (07:00→08:45)
--- NOTE | 2024-01-15 07:19 | WPDANESEPPF ---
Anes - Initial Pre Proc Eval Procedure: Operation Date: 01/14/24 07:30 Proposed Procedures p Total Abdominal Hysterectomy - Thais Siu MD Operation Date: 01/15/24 07:30 Proposed Procedures p Exploratory Laparotomy - Thais Siu MD Date/Time: 01/15/24 07:19 Surgeon: Thais Siu MD Pre Op Diagnosis: Menorrhagia Patient Data Age: 33 Gender: F Height: 1.73 m Weight: 67.6 kg Last Vital Signs Temp 100.9 F H 01/15/24 03:35 Pulse 92 01/15/24 03:35 Resp 16 01/15/24 03:35 BP 124/78 01/15/24 03:35 Pulse Ox 98 01/15/24 03:35 O2 Del Method Nasal Cannula 01/14/24 16:15 O2 Flow Rate 1 01/14/24 16:15 Allergies Allergy/AdvReac Type Severity Reaction Status Date / Time No Known Allergies Allergy Verified 01/14/24 06:33 Home Medications Medication Instructions Recorded Confirmed Type sertraline 100 mg tablet 100 mg PO DAILY 07/23/23 01/14/24 History levonorgestrel 0.1 mg-ethinyl 1 tablet PO DAILY 01/07/24 01/07/24 History estradiol 20 mcg chewable tablet (Tyblume) omeprazole 20 mg capsule,delayed 20 mg PO DAILY 14 days #14 caps 01/12/24 Rx release Laboratory Tests 01/14/24 01/15/24 06:30 05:35 WBC 13.4 H K/mm3 (4.5-10.0) RBC 2.48 L M/mm3 (4.2-5.4) Hgb 6.9 L* D g/dL (12.0-15.0) Hct 21.7 L % (37.0-47.0) MCV 87.5 fl (80-100) MCH 27.8 pg (26-34) MCHC 31.8 L g/dl (32-36) RDW 13.2 % (11.5-14.5) Plt Count 260 k/mm3 (150-375) MPV 10.8 H fl (7.4-10.4) Immature Gran % (Auto) 0.5 % (0-0.5) Neut % (Auto) 77.7 H % (45.5-73.1) Lymph % (Auto) 13.7 L % (18.3-44.2) Sanborn % (Auto) 8.0 % (2.6-8.5) Eos % (Auto) 0.0 % (0-4.4) Baso % (Auto) 0.1 L % (0.2-1.2) Lymph # (Auto) 1.83 K/mm3 (0.9-3.2) Sanborn # (Auto) 1.1 H K/mm3 (0.1-0.6) Eos # (Auto) 0.0 K/mm3 (0-0.3) Baso # (Auto) 0.0 K/mm3 (0.0-0.1) Abs Immat Gran (auto) 0.07 H K/mm3 (0.00-0.031) Absolute Neuts (auto) 10.4 H K/mm3 (1.3-6.7) Absolute Nucleated RBC 0.000 K/mm3 (0.0-0.012) Nucleated RBC % 0.0 % (0.0-0.2) POC Urine HCG, Qual Negative POC Ur Preg QC Yes Patient hx anesthesia problems: other (Pt reports occ delayed emergence in the past, nothing that required unexpected admission. ) Family hx anesthesia problems: none Results Review: All pre-operative results and documents have been reviewed as part of the pre-operative evaluation. REPLACED BY [facility] Past Medical History Medical History (Updated 01/15/24 @ 06:58 by Thais Siu MD) Depression with anxiety PCOS (polycystic ovarian syndrome) Surgical History Surgical History (Updated 01/14/24 @ 08:36 by Thais Siu MD) History of hysteroscopy July of 2023 History of weight loss surgery 03/19 Family History Family History Grandparent Diabetes mellitus Father Acute myocardial infarction Social History Social History Years smoked: 6 Smoking status: Current every day smoker Tobacco type: e-cigarettes/vaping Alcohol intake: current Drinks per week: 5 Living arrangements: alone 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
[2024-01-15] MEDS: ceFAZolin 2 GM/D5W 50 ML 2 GM/50 ML BAG IVPB (07:40)
--- NOTE | 2024-01-15 08:26 | W.PM.PROC2 ---
Procedure Note - Detailed Date of Procedure 01/15/24 Pre-op Diagnosis Postoperative bleeding Post-op Diagnosis Same Procedure Performed exploratory laparotomy with evacuation of clot Surgeon Thais Siu MD Anesthesia General Findings [id number] of in the colic gutters and pelvis no obvious source of bleeding Description of Procedure The patient was taken to the operating room after hemoglobin this morning was 6.9 for intra-abdominal bleeding. She was placed under general anesthesia in the dorsal supine position. She was prepped and draped usual sterile fashion. She was given 2g of Ancef prior to incision. The surgical incision is a scalpel glue is peeled. The sutures removed from skin and fascia. Once the fascia is opened clots noted and are evacuated using lap sponges. The colic gutters and the pelvis were cleared of all clots. The bowel was then packed away using moist laparotomy sponges and the Bertrand placed. All pedicles were inspected and noted to be hemostatic. The cuff was inspected and noted to be hemostatic. The peritoneum over the ovarian pedicles was suture ligated with 0 Vicryl. The vaginal cuff was ran with 0 Vicryl incorporating the posterior peritoneum. The bladder flap was inspected and noted to be hemostatic and the muscle layer and peritoneum were noted to be hemostatic. The pelvis was inspected for 5minutes and no active bleeding was encountered pedicles were again inspected and noted to be hemostatic as was the cuff. Instruments and sponges are removed. Additional clot was removed from the upper abdomen with lap sponges. The fascia was then closed using 0 Vicryl in a running fashion. Subcutaneous tissues are irrigated and noted to be hemostatic. The skin is closed in subcuticular fashion with 4-0 Vicryl. Dermaflex was placed over the incision. Sponge, needle, and instrument counts are correct per the OR staff. Estimated Blood Loss 0 ( [id number] of clots removed no active bleeding) Drains Yes ( Marc catheter) Packing No Pathology None sent Complications No immediate complications Condition Stable Disposition PACU
--- NOTE | 2024-01-15 09:53 | PC.NURSE ---
Returned from OR per bed. Report received from KHADAR Valdez.
[2024-01-15] MEDS: SIMETHICONE 80 MG TAB.CHEW PO ×2 (12:14→16:23)
[2024-01-15] MEDS: SERTRALINE HCL 50 MG TABLET 100 MG PO (12:14)
[2024-01-15 14:20] LABS: Hematocrit 19.3 % (37.0-47.0); Hemoglobin 6.2 g/dL (12.0-15.0)
--- NOTE | 2024-01-15 15:10 | PC.NURSE ---
This patient is eligible for electronic cross match per blood bank and will be able to have PRBC ready to be released if ordered to transfuse.
[2024-01-15 19:57] LABS: Alanine Aminotransferase 44 U/L (6-35); Albumin Level 3.6 g/dL (3.5-5.1); Alkaline Phosphatase 61 U/L (38-126); Anion Gap 11 mmol/L (4-12); Aspartate Amino Transferase 27 U/L (14-36); Bilirubin,Total 0.2 mg/dL (0.2-1.3); Blood Urea Nitrogen 8 mg/dL (7-17); Calcium 8.6 mg/dL (8.4-10.2); Carbon Dioxide 25 mmol/L (22-30); Chloride 101 mmol/L (98-107); Estimated CRCL calculation 98 ml/min; Estimated Glomerular Filt Rate > 60; Glucose 133 mg/dL (65-110); Potassium 3.7 mmol/L (3.4-5.0); Sodium 137 mmol/L (137-145)
[2024-01-16] VITALS (14 sets, daily range): BP systolic 100–133; BP diastolic 51–77; PULSE 62–96; RESP 16–20; TEMP 36.8–37.6; O2SAT 96–100
[2024-01-16] MEDS: HYDROcodone/acetaminophen (*CRX) 5-325 MG TABLET 1 TAB PO ×6 (00:56→20:11)
--- NOTE | 2024-01-16 07:35 | WPDPN ---
Progress Note: A&P Assessment and Plan (1) Postoperative hemorrhage: Status: Acute (2) Status post total abdominal hysterectomy: Code(s): Z90.710 - Acquired absence of both cervix and uterus Status: Acute Plan Status discussed with Dr. Siu. Discharged home. Subjective Date/time seen: 01/16/24 07:35 Interval history: Pt sitting up in chair at table, reading a book. Pain well controlled with po meds. Denies dizziness when standing or ambulating. Tolerating po food and fluids. Using incentive spirometer. Desires DC home. Review of Systems Review of Systems: All systems reviewed & are unremarkable except as noted in HPI and below Constitutional: Constitutional: Reports as per HPI ENT: Reports system reviewed and no additional complaints, except as documented Respiratory: Respiratory: Reports as per HPI Exam Const: General: comfortable and no acute distress HENMT: Mouth: Yes moist mucous membranes Eyes: General: appearance normal, both eyes and all related structures Resp: Effort & Inspection: normal respiratory effort Auscultation: clear to auscultation bilaterally Cardio: Rate: regular rate GI: GI Palp: Yes Soft to palpation Auscultation: normal bowel sounds : External Female Exam: normal external appearance Skin: Other: Appears WNL. Neuro: General: gait normal Speech: normal speech Sensory Exam: normal sensation Extrem: General: normal to inspection Psych: Mental Status: mental status grossly normal Affect: normal affect Objective Data Vital Signs Vital Signs: Vital Signs - 24 hr 01/15/24 08:45 01/15/24 09:00 01/15/24 09:15 Temperature 97.7 F Pulse Rate 98 73 73 Respiratory Rate 16 18 17 Blood Pressure 147/88 H 136/75 119/55 L Pulse Oximetry 100 100 96 Oxygen Delivery Simple Face Mask Simple Face Mask Room Air Oxygen Flow Rate 8 8 01/15/24 09:30 01/15/24 09:45 01/15/24 10:00 Temperature 99.7 F H Pulse Rate 73 71 96 Respiratory Rate 18 16 16 Blood Pressure 113/54 L 114/61 131/77 Pulse Oximetry 96 96 100 Oxygen Delivery Room Air Room Air Oxygen Flow Rate 01/15/24 10:00 01/15/24 12:50 01/15/24 12:50 Temperature 98.4 F Pulse Rate 88 Respiratory Rate 16 Blood Pressure 108/63 Pulse Oximetry 98 Oxygen Delivery Room Air Room Air Oxygen Flow Rate 01/15/24 16:15 01/15/24 16:15 01/15/24 20:42 Temperature 98.4 F 99.3 F Pulse Rate 83 106 H Respiratory Rate 16 18 Blood Pressure 118/63 104/53 L Pulse Oximetry 98 98 Oxygen Delivery Room Air Oxygen Flow Rate 01/16/24 06:35 Temperature Pulse Rate Respiratory Rate Blood Pressure Pulse Oximetry Oxygen Delivery Room Air Oxygen Flow Rate Intake/Output Intake/Output: Intake & Output 01/13/24 01/14/24 01/15/24 01/16/24 23:59 23:59 23:59 23:59 Intake Total 3695.0 2635.9 Output Total 460 1115 550 Balance 3235.0 1520.9 -550 Meds/Results Medications: Active Medications Generic Name Dose Route Start Last Admin Trade Name Freq PRN Reason Stop Dose Admin Hydrocodone Bitart/Acetaminophen 1 tab 01/14/24 11:08 01/15/24 03:36 Hydrocodone/Acetaminophen (*Crx) 10-325 Mg Tablet PO 1 tab Q3H PRN Administration Pain Rated 6 or Greater Hydrocodone Bitart/Acetaminophen 1 tab 01/14/24 11:08 01/16/24 06:32 Hydrocodone/Acetaminophen (*Crx) 5-325 Mg Tablet PO 1 tab Q3H PRN Administration Pain Rated 5 or Less Famotidine 20 mg 01/15/24 00:25 01/15/24 20:51 Famotidine 20 Mg Tablet PO 20 mg Q12HR LEONIDAS Administration Dextrose/Lactated Ringer's 1,000 mls @ 125 mls/hr 01/14/24 11:08 01/16/24 06:16 Dextrose 5%/Lactated Ringers IV CONT Not Given .Q8H LEONIDAS Ibuprofen 600 mg 01/14/24 11:08 Ibuprofen 600 Mg Tablet PO Q6H PRN Cramping Ketorolac Tromethamine 30 mg 01/14/24 11:08 01/15/24 01:40 Ketorolac 30 Mg/Ml Vial (*Bkc) IV PUSH 01/19/24 11:07 30 mg Q6H PRN Administration
[2024-01-16] MEDS: SIMETHICONE 80 MG TAB.CHEW PO ×3 (08:06→16:01)
[2024-01-16] MEDS: SERTRALINE HCL 50 MG TABLET 100 MG PO (08:12)
[2024-01-16] MEDS: FAMOTIDINE 20 MG TABLET PO ×2 (08:12→20:11)
[2024-01-16 08:15] LABS: Mean Corpuscular HGB Conc 31.5 g/dl (32-36); Mean Corpuscular Hemoglobin 28.2 pg (26-34); Mean Corpuscular Volume 89.4 fl (80-100); Mean Platelet Volume 10.6 fl (7.4-10.4); Platelet Count Result 210 k/mm3 (150-375); Red Blood Count 1.88 M/mm3 (4.2-5.4); Red Cell Distribution Width 13.6 % (11.5-14.5); White Blood Count 9.5 K/mm3 (4.5-10.0)
[2024-01-16 08:20] LABS: Hematocrit 16.8 % (37.0-47.0); Hemoglobin 5.3 g/dL (12.0-15.0)
--- NOTE | 2024-01-16 08:27 | WPDANESPN ---
Anes - Prog Note Post-Op Date/Time: 01/16/24 08:27 Cardiovascular status: other (anemic) Respiratory status: normal Airway patency: baseline Mental status: baseline Post-Op hydration status: normal Vital Signs: Last Vital Signs Temp 37.4 C 01/15/24 20:42 Pulse 106 H 01/15/24 20:42 Resp 18 01/15/24 20:42 BP 104/53 L 01/15/24 20:42 Pulse Ox 98 01/15/24 20:42 O2 Del Method Room Air 01/16/24 06:35 O2 Flow Rate 8 01/15/24 09:00 Pain Score (VAS): 410 I/O: Intake & Output 01/15/24 01/16/24 01/16/24 23:59 07:59 15:59 Intake Total 800 Output Total 600 550 Balance 200 -550 Laboratory Tests 01/16/24 08:06 01/15/24 01/15/24 01/16/24 14:10 19:14 08:06 WBC 9.5 RBC 1.88 L Hgb 6.2 L* 5.3 L* Hct 19.3 L* 16.8 L* MCV 89.4 MCH 28.2 MCHC 31.5 L RDW 13.6 Plt Count 210 MPV 10.6 H Sodium 137 Pending Potassium 3.7 Pending Chloride 101 Pending Carbon Dioxide 25 Pending Anion Gap 11 Pending BUN 8 Pending Creatinine 0.70 Pending Estim Creat Clear Calc 98 Pending Estimated GFR > 60 Pending Glucose 133 H Pending Calcium 8.6 Pending Total Bilirubin 0.2 Pending AST 27 Pending ALT 44 H Pending Alkaline Phosphatase 61 Pending Total Protein 6.0 L Pending Albumin 3.6 Pending Blood Type B Positive Antibody Screen Negative Crossmatch See Detail Post-procedural complaints: none Patient Feedback: Patient satisfied with anesthetic care.
--- NOTE | 2024-01-16 08:36 | WPDPN ---
Subjective Date/time seen: 01/16/24 08:25 Interval history: Spoke with Dr. Siu about CBC results. 2 units of blood ordered. Discussed plan of care with pt. All questions answered. Agrees to blood transfusion. Plan to observe overnight and obtain CBC in the am. Objective Data Vital Signs Vital Signs: Vital Signs - 24 hr 01/15/24 08:45 01/15/24 09:00 01/15/24 09:15 Temperature 97.7 F Pulse Rate 98 73 73 Respiratory Rate 16 18 17 Blood Pressure 147/88 H 136/75 119/55 L Pulse Oximetry 100 100 96 Oxygen Delivery Simple Face Mask Simple Face Mask Room Air Oxygen Flow Rate 8 8 01/15/24 09:30 01/15/24 09:45 01/15/24 10:00 Temperature 99.7 F H Pulse Rate 73 71 96 Respiratory Rate 18 16 16 Blood Pressure 113/54 L 114/61 131/77 Pulse Oximetry 96 96 100 Oxygen Delivery Room Air Room Air Oxygen Flow Rate 01/15/24 10:00 01/15/24 12:50 01/15/24 12:50 Temperature 98.4 F Pulse Rate 88 Respiratory Rate 16 Blood Pressure 108/63 Pulse Oximetry 98 Oxygen Delivery Room Air Room Air Oxygen Flow Rate 01/15/24 16:15 01/15/24 16:15 01/15/24 20:42 Temperature 98.4 F 99.3 F Pulse Rate 83 106 H Respiratory Rate 16 18 Blood Pressure 118/63 104/53 L Pulse Oximetry 98 98 Oxygen Delivery Room Air Oxygen Flow Rate 01/16/24 06:35 Temperature Pulse Rate Respiratory Rate Blood Pressure Pulse Oximetry Oxygen Delivery Room Air Oxygen Flow Rate Intake/Output Intake/Output: Intake & Output 01/13/24 01/14/24 01/15/24 01/16/24 23:59 23:59 23:59 23:59 Intake Total 3695.0 2635.9 Output Total 460 1115 550 Balance 3235.0 1520.9 -550 Meds/Results Medications: Active Medications Generic Name Dose Route Start Last Admin Trade Name Freq PRN Reason Stop Dose Admin Hydrocodone Bitart/Acetaminophen 1 tab 01/14/24 11:08 01/15/24 03:36 Hydrocodone/Acetaminophen (*Crx) 10-325 Mg Tablet PO 1 tab Q3H PRN Administration Pain Rated 6 or Greater Hydrocodone Bitart/Acetaminophen 1 tab 01/14/24 11:08 01/16/24 06:32 Hydrocodone/Acetaminophen (*Crx) 5-325 Mg Tablet PO 1 tab Q3H PRN Administration Pain Rated 5 or Less Docusate Sodium 100 mg 01/16/24 08:31 Docusate Sodium 100 Mg Capsule PO Q12H PRN Constipation Famotidine 20 mg 01/15/24 00:25 01/16/24 08:12 Famotidine 20 Mg Tablet PO 20 mg Q12HR LEONIDAS Administration Dextrose/Lactated Ringer's 1,000 mls @ 125 mls/hr 01/14/24 11:08 01/16/24 06:16 Dextrose 5%/Lactated Ringers IV CONT Not Given .Q8H LEONIDAS Sodium Chloride 250 mls @ 30 mls/hr 01/16/24 08:31 Normal Saline Iv IV CONT 01/16/24 16:50 .Q8H20M STA Ibuprofen 600 mg 01/14/24 11:08 Ibuprofen 600 Mg Tablet PO Q6H PRN Cramping Ketorolac Tromethamine 30 mg 01/14/24 11:08 01/15/24 01:40 Ketorolac 30 Mg/Ml Vial (*Bkc) IV PUSH 01/19/24 11:07 30 mg Q6H PRN Administration Pain Rated 4-6 Ondansetron HCl 4 mg 01/14/24 19:14 01/14/24 19:22 Ondansetron Inj 4 Mg/2 Ml Vial IV PUSH 4 mg Q4H PRN Administration Nausea And Vomiting Prochlorperazine Edisylate 10 mg 01/14/24 22:17 01/14/24 22:28 Prochlorperazine Edisylate 10 Mg/2 Ml Vial IV PUSH 10 mg Q6H PRN Administration Nausea And Vomiting Sertraline HCl 100 mg 01/14/24 11:08 01/16/24 08:12 Sertraline Hcl 50 Mg Tablet PO 100 mg DAILY LEONIDAS Administration Simethicone 80 mg 01/14/24 12:00 01/16/24 08:06 Simethicone 80 Mg Tab.Chew PO 80 mg TIDWM LEONIDAS Administration Labs Labs: Laboratory Results - last 24 hr 01/15/24 01/15/24 01/16/24 14:10 19:14 08:06 WBC 9.5 RBC 1.88 L Hgb 6.2 L* 5.3 L* Hct 19.3 L* 16.8 L* MCV 89.4 MCH 28.2 MCHC 31.5 L RDW 13.6 Plt Count 210 MPV 10.6 H Sodium 137 Potassium 3.7 Chloride 101 Carbon Dioxide 25 Anion Gap 11 BUN 8 Creatinine 0.70 Estim Creat Clear Calc 98 Estimated GFR > 60
[2024-01-16 08:42] LABS: Alanine Aminotransferase 29 U/L (6-35); Albumin Level 3.2 g/dL (3.5-5.1); Alkaline Phosphatase 60 U/L (38-126); Anion Gap 6 mmol/L (4-12); Aspartate Amino Transferase 20 U/L (14-36); Bilirubin,Total 0.3 mg/dL (0.2-1.3); Blood Urea Nitrogen 8 mg/dL (7-17); Calcium 8.4 mg/dL (8.4-10.2); Carbon Dioxide 29 mmol/L (22-30); Chloride 102 mmol/L (98-107); Estimated CRCL calculation 113 ml/min; Estimated Glomerular Filt Rate > 60; Glucose 96 mg/dL (65-110); Potassium 3.7 mmol/L (3.4-5.0); Sodium 137 mmol/L (137-145)
[2024-01-16] MEDS: DOCUSATE SODIUM 100 MG CAPSULE PO (08:47)
[2024-01-16] MEDS: SODIUM CHLORIDE 0.9% IV 250 ML 30 ML IV CONT (09:39)
[2024-01-16] MEDS: TUBING, BLOOD PLUM PUMP TUBING 1 EACH XX ×2 (09:39→13:25)
[2024-01-17] VITALS (9 sets, daily range): BP systolic 112–126; BP diastolic 62–84; PULSE 60–81; RESP 16; TEMP 36.8–37.2; O2SAT 97–100
[2024-01-17] MEDS: HYDROcodone/acetaminophen (*CRX) 5-325 MG TABLET 1 TAB PO ×5 (00:13→14:25)
[2024-01-17 05:26] LABS: Mean Corpuscular HGB Conc 31.4 g/dl (32-36); Mean Corpuscular Hemoglobin 26.6 pg (26-34); Mean Corpuscular Volume 84.7 fl (80-100); Mean Platelet Volume 10.7 fl (7.4-10.4); Platelet Count Result 157 k/mm3 (150-375); Red Blood Count 2.48 M/mm3 (4.2-5.4); Red Cell Distribution Width 16.1 % (11.5-14.5); White Blood Count 5.9 K/mm3 (4.5-10.0)
[2024-01-17 05:32] LABS: Hemoglobin 6.6 g/dL (12.0-15.0)
[2024-01-17] MEDS: TRANEXAMIC ACID 1,000MG/ISO100 1,000 MG/100 ML BAG 200 MG IVPB (06:30)
[2024-01-17] MEDS: TUBING, BLOOD PLUM PUMP TUBING 1 EACH XX (07:16)
[2024-01-17] MEDS: SODIUM CHLORIDE 0.9% IV 250 ML 30 ML IV CONT (07:16)
--- NOTE | 2024-01-17 07:26 | PM.GYNPNOP ---
MANAGER ENDOSCOPY - A/P Assessment and plan (1) Elevated liver function tests: Code(s): R79.89 - Other specified abnormal findings of blood chemistry Status: Acute Assessment and Plan: Recommend abstain from alcohol and discuss with her primary after discharge. Liver tests have normalized Postoperative Procedures: Procedures Operation Date: 01/14/24 07:30 Actual Procedure Side Surgeon p Total Abdominal Hysterectomy Not Applicable Thais Siu MD Operation Date: 01/15/24 07:30 Actual Procedure Side Surgeon p Exploratory Laparotomy, Clot Evacuation Not Applicable Thais Siu MD Postoperative day: 3 Postoperative status: anemia ( will transfuse 1 additional unit to get the blood count to 7) and other ( CBC 4 hours after blood and if rises as expected will discharge home) Postoperative plan: see orders Time Spent With Patient Time: Total time spent is greater than 50% in coordination of care (as documented) at patient's floor/unit and/or counseling patient: Time with patient: 15 - 25 minutes MANAGER ENDOSCOPY- PN:Subj Post-Op Subjective Date/time seen: 01/17/24 07:26 Interval history: Patient reports feeling better and has no shortness of breath. Pain is under good control. When discussing the liver function tests the patient states she was seen for GI distress and pain on 01/11 and at that time her liver tests were elevated. She does report drinking alcohol the evening. Patient is ambulating without dizziness Subjective: patient reports feeling better and pain is well controlled Exam Narrative: abdomen soft, nontender, nondistended incision clean dry and intact perineum with minimal spotting MANAGER ENDOSCOPY - PN: Obj Data Vital Signs Vital Signs: Vital Signs - 24 hr 01/16/24 08:30 01/16/24 09:37 01/16/24 09:40 Temperature 98.3 F 99.2 F 98.2 F Pulse Rate 62 94 93 Respiratory Rate 16 20 20 Blood Pressure 133/69 125/58 L 119/56 L Pulse Oximetry 96 100 100 01/16/24 09:54 01/16/24 10:54 01/16/24 11:54 Temperature 98.8 F 99.1 F 98.7 F Pulse Rate 96 78 84 Respiratory Rate 18 18 18 Blood Pressure 115/62 106/62 100/56 L Pulse Oximetry 99 99 97 01/16/24 12:50 01/16/24 13:15 01/16/24 13:26 Temperature 99.2 F 99.7 F H 99.2 F Pulse Rate 75 88 93 Respiratory Rate 18 18 18 Blood Pressure 120/51 L 125/64 126/66 Pulse Oximetry 99 99 99 01/16/24 13:40 01/16/24 14:40 01/16/24 15:40 Temperature 98.7 F 99.1 F 98.8 F Pulse Rate 94 86 83 Respiratory Rate 18 18 16 Blood Pressure 112/62 109/63 108/51 L Pulse Oximetry 98 98 99 01/16/24 16:10 01/16/24 20:13 01/17/24 04:09 Temperature 98.7 F 98.3 F 98.3 F Pulse Rate 75 75 80 Respiratory Rate 16 18 16 Blood Pressure 113/70 119/77 112/63 Pulse Oximetry 100 100 100 01/17/24 07:16 01/17/24 07:17 Temperature 99.0 F 98.7 F Pulse Rate 72 75 Respiratory Rate 16 16 Blood Pressure 118/62 112/77 Pulse Oximetry 99 98 Intake/Output Intake/Output: Intake & Output 01/14/24 01/15/24 01/16/24 01/17/24 23:59 23:59 23:59 23:59 Intake Total 3695.0 2635.9 1038 0 Output Total 460 1115 700 Balance 3235.0 1520.9 338 0 Meds/Results Medications: Active Medications Generic Name Dose Route Start Last Admin Trade Name Freq PRN Reason Stop Dose Admin Hydrocodone Bitart/Acetaminophen 1 tab 01/14/24 11:08 01/15/24 03:36 Hydrocodone/Acetaminophen (*Crx) 10-325 Mg Tablet PO 1 tab Q3H PRN Administration Pain Rated 6 or Greater Hydrocodone Bitart/Acetaminophen 1 tab 01/14/24 11:08 01/17/24 04:15 Hydrocodone/Acetaminophen (*Crx) 5-325 Mg Tablet PO 1 tab Q3H PRN Administration Pain Rated 5 or Less Docusate Sodium 100 mg 01/16/24 08:31 01/16/24 08:47 Docusate Sodium 100 Mg Capsule PO 100 mg Q12H PRN Administration Constipation Famotidine 20 mg 01/15/24 00:25 01/16/24 20:11 Famotidine 20 Mg Tablet PO 20 mg Q12HR LEONIDAS Administration Sodium Chloride 250 mls @ 30 mls/hr 01/17/24 05:42
[2024-01-17] MEDS: SIMETHICONE 80 MG TAB.CHEW PO ×2 (07:27→11:09)
[2024-01-17] MEDS: DOCUSATE SODIUM 100 MG CAPSULE PO (07:27)
[2024-01-17] MEDS: ONDANSETRON HCL ODT 4 MG TABLET PO (08:16)
[2024-01-17] MEDS: SERTRALINE HCL 50 MG TABLET 100 MG PO (08:34)
[2024-01-17] MEDS: FAMOTIDINE 20 MG TABLET PO (08:34)
[2024-01-17 15:08] LABS: Hematocrit 28.4 % (37.0-47.0); Hemoglobin 9.2 g/dL (12.0-15.0)
== END 2024-01-17 16:00 | disposition home or self-care (01) | DRG 742 ==
LOC: ANHOB2 11:14
PROVIDERS: Advanced Practice Midwife; Admitting Provider Obstetrics & Gynecology Gynecology; PCP Registered Nurse; Visit Provider Obstetrics & Gynecology Gynecology
PROC: 0UT94ZZ Resection of Uterus, Percutaneous Endoscopic Approach (ICD-10-PCS; principal; 2024-01-14 07:30)
DX: N92.0 Excessive and frequent menstruation with regular cycle (principal); N99.820 Postprocedural hemorrhage of a genitourinary system organ or structure following a genitourinary system procedure; E28.2 Polycystic ovarian syndrome; R79.89 Other specified abnormal findings of blood chemistry; F41.8 Other specified anxiety disorders; F17.290 Nicotine dependence, other tobacco product, uncomplicated
CPT/HCPCS: 36415; 36430; 80053; 85014; 85018; 85025; 85027; 86850; 86900; 86901; 86923; 88307; A9270; J0330; J0690; J0780; J1100; J1170; J1630; J1885; J1940; J2250; J2405; J2704; J3010; J7030; J7050; J7120; J7121; P9016; Q9968

== ENCOUNTER 2024-01-22 04:40 | Emergency (ER) | payer BC, SELFPAY ==
--- NOTE | ~2024-01-22 | CT_ITS ---
CT of the Abdomen and Pelvis: Indication: Abdominal pain Technique: 2.5 mm axial scans were obtained through the abdomen and pelvis following intravenous adm inistration of 100 cc of Omnipaque 350. Dose reduction technique was used on this scan by utilizing a utomated exposure control and iterative reconstruction technique. The dose-length product (DLP) was 4 02.83 mGy-cm. COMPARISON: 01/12/2024 Findings: Scans through the lung bases are unremarkable. The liver, spleen, pancreas, gallbladder, adrenals and kidneys are within normal limits. No evidence of aortic aneurysm. No lymphadenopathy. No bowel obstruction or bowel wall thickening. Evidence of prior bariatric surgery noted. Images through the pelvis were performed. Status post interval hysterectomy with associated small triston unt of free fluid in the pelvis, minimal free air, and postoperative infiltration of pelvic fat plane s. No definite masslike hematoma or abscess identified. Impression: Status post interval hysterectomy, with expected postoperative changes in the pelvis. No definite mas slike hematoma or abscess identified. Minimal free air is compatible with recent postoperative change . Reviewed, dictated and finalized at location . Impression: Status post interval hysterectomy, with expected postoperative changes in the p heladio. No definite masslike hematoma or abscess identified. Minimal free air is compatible with recent postoperative change.
[2024-01-22 04:45] VITALS: BP 130/84; PULSE 64; RESP 16; TEMP 36.7; O2SAT 100
[2024-01-22] MEDS: ONDANSETRON INJ 4 MG/2 ML VIAL IV PUSH (05:05)
[2024-01-22] MEDS: SODIUM CHLORIDE 0.9% IV 1,000 ML 999 ML IV CONT ×2 (05:05→07:36)
[2024-01-22 05:07] LABS: Basophils Percent Auto 0.1 % (0.2-1.2); Eosinophils Percent Auto 0.3 % (0-4.4); Hematocrit 35.3 % (37.0-47.0); Hemoglobin 11.6 g/dL (12.0-15.0); Immature Granulocyte Absolute 0.02 K/mm3 (0.00-0.031); Immature Granulocyte Percent A 0.3 % (0-0.5); Lymphocytes Absolute Auto 1.32 K/mm3 (0.9-3.2); Lymphocytes Percent Auto 17.1 % (18.3-44.2); Mean Corpuscular HGB Conc 32.9 g/dl (32-36); Mean Corpuscular Hemoglobin 27.8 pg (26-34); Mean Corpuscular Volume 84.7 fl (80-100); Mean Platelet Volume 9.4 fl (7.4-10.4); Monocytes Absolute Auto 0.4 K/mm3 (0.1-0.6); Monocytes Percent Auto 5.2 % (2.6-8.5); Neutrophils Absolute Auto 5.9 K/mm3 (1.3-6.7); Platelet Count Result 350 k/mm3 (150-375); Red Blood Count 4.17 M/mm3 (4.2-5.4); Red Cell Distribution Width 15.6 % (11.5-14.5); White Blood Count 7.7 K/mm3 (4.5-10.0)
[2024-01-22 05:25] LABS: Alanine Aminotransferase 38 U/L (6-35); Albumin Level 4.3 g/dL (3.5-5.1); Alkaline Phosphatase 107 U/L (38-126); Anion Gap 12 mmol/L (4-12); Aspartate Amino Transferase 22 U/L (14-36); Bilirubin,Total 0.9 mg/dL (0.2-1.3); Blood Urea Nitrogen 6 mg/dL (7-17); Calcium 9.2 mg/dL (8.4-10.2); Carbon Dioxide 22 mmol/L (22-30); Chloride 105 mmol/L (98-107); Estimated CRCL calculation 132 ml/min; Estimated Glomerular Filt Rate > 60; Glucose 99 mg/dL (65-110); Potassium 3.5 mmol/L (3.4-5.0); Sodium 139 mmol/L (137-145)
[2024-01-22 05:35] LABS: SPREG INTERNAL CONTROL Positive; Serum Qual hCG Negative
[2024-01-22 05:43] LABS: Influenza A QL RT-PCR Negative (Negative); Influenza B QL RT-PCR Negative (Negative); SARS-CoV-2 RNA PCR Negative (Negative)
[2024-01-22] MEDS: METOCLOPRAMIDE HCL INJ 10 MG/2 ML VIAL IV PUSH (05:49)
[2024-01-22] MEDS: diphenhydrAMINE HCl INJ 50 MG/ML VIAL 25 MG IV PUSH (05:49)
[2024-01-22 05:53] VITALS: BP 120/74; PULSE 62; RESP 17; O2SAT 99
--- NOTE | 2024-01-22 06:37 | ED.ABDPAIN ---
HPI - Abdominal Pain General Chief Complaint: Abdominal Pain Stated Complaint: N/V; ABD PAIN Time Seen by Provider: 01/22/24 04:47 History of Present Illness HPI narrative: Patient is a 34-year-old female who presents to the emergency department this evening complaining of nausea, vomiting and abdominal pain. Patient states the symptoms started on Sunday and have been progressively getting worse. She states that she is unable to keep anything down. Patient had hysterectomy on the and states that she had some bleeding as a complication after the hysterectomy requiring her to receive 3 units of RBCs, the last 1 was this past . Denies any sick contacts at home, denies any fevers or chills. Patient was administered a mg of ODT Zofran per EMS prior to arrival with no relief of symptoms. Related Data Home Medications Medication Instructions Recorded Confirmed sertraline 100 mg tablet 100 mg PO DAILY 07/23/23 01/15/24 Allergies Allergy/AdvReac Type Severity Reaction Status Date / Time No Known Allergies Allergy Verified 01/22/24 05:06 Review of Systems Review of Systems: All systems are reviewed and are negative unless stated otherwise in the HPI. 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 HEENT: PERRL, no rhinorrhea, no post nasal drip, oropharynx clear. Cardiovascular: Regular rate and rhythm, no murmurs, rubs or gallops, no peripheral edema. Respiratory: Clear to auscultation bilaterally, no tachypnea, no wheezing, no rhonchi, no rubs, no respiratory distress. Abdomen: Soft, nontender, nondistended, no rebound, no guarding, no peritoneal signs, lower abdomen incision scar appears to be well healing, no surrounding erythema or evidence of infection. Musculoskeletal: No joint swelling or deformity, normal muscle tone. Skin: No rashes or petechia, no signs of infection. Neurological: Alert and oriented to person, place, and time. Follows all commands. No focal deficits, speech is clear and fluent. Course Vital Signs Vital signs: Vital Signs Temperature 98.1 F 01/22/24 04:45 Pulse Rate 64 01/22/24 04:45 Respiratory Rate 16 01/22/24 04:45 Blood Pressure 130/84 01/22/24 04:45 Pulse Oximetry 100 01/22/24 04:45 Oxygen Delivery Room Air 01/22/24 04:45 Temperature 98.1 F 01/22/24 04:45 Pulse Rate 52 L 01/22/24 07:37 Respiratory Rate 15 01/22/24 07:37 Blood Pressure 129/74 01/22/24 07:37 Pulse Oximetry 100 01/22/24 07:37 Oxygen Delivery Room Air 01/22/24 04:45 MDM - Abdominal Pain MDM Narrative Medical decision making narrative: The patient was evaluated by myself in the emergency department. History is obtained from patient who is an independent historian and physical exam was performed. External medical records were reviewed at this time. IV was established and pertinent tests were ordered. Patient states that the Zofran did not alleviate her symptoms and at this time she was administered 10 mg of IV Reglan 25 mg of IV Benadryl along with 1 L IV fluid bolus with normal salin
[2024-01-22 06:47] LABS: Add Urine Microscopic? YES; Appearance Urine Clear (Clear); Bacteria Urine 2+ /hpf; Bilirubin Urine Negative (Negative); Blood Urine 1+ (Negative); Color Urine Yellow (Yellow); Glucose Urine UA Negative (Negative); Ketones Urine 2+ mg/dL (Negative); Leukocyte Esterase Ur 2+ LEU/UL (Negative); Nitrate Urine Negative (Negative); Non Pathogenic Casts 0-2; Protein Urine Trace mg/dL (Negative); RBC Urine 0-2 /hpf (0-2); Specific Grav Ur 1.018 (1.001-1.035); Squamous Epithelial Cell Urine Moderate /hpf (Few); WBC Urine 21-50 /hpf (0-3); pH Urine 8.5 (5.0-9.0)
[2024-01-22 07:37] VITALS: BP 129/74; PULSE 52; RESP 15; O2SAT 100
[2024-01-22] MEDS: PROCHLORPERAZINE EDISYLATE 10 MG/2 ML VIAL IV PUSH (08:36)
== END 2024-01-22 08:46 | disposition home or self-care (01) ==
PROVIDERS: Emergency Provider Emergency Medicine; PCP Registered Nurse
DX: N39.0 Urinary tract infection, site not specified (principal); R11.2 Nausea with vomiting, unspecified; Z20.822 Contact with and (suspected) exposure to COVID-19; E28.2 Polycystic ovarian syndrome; F41.8 Other specified anxiety disorders; F17.290 Nicotine dependence, other tobacco product, uncomplicated; Z90.710 Acquired absence of both cervix and uterus
CPT/HCPCS: 36415; 74177; 80053; 81001; 83735; 84703; 85025; 87086; 87636; 96361; 96365; 96375; 99284; J0696; J0780; J1200; J2405; J2765; J7030; Q9967

== ENCOUNTER 2024-10-27 08:09 | Outpatient (CLI) | payer BC, SELFPAY ==
--- NOTE | ~2024-10-27 | US_ITS ---
Limited Abdominal Sonogram: Real-time sonographic imaging of the right upper quadrant was performed. Clinical History: Right upper quadrant pain Findings: The liver appears normal with no evidence of mass lesion or bile duct dilatation. Main por brenda vein demonstrates normal direction of flow. The gallbladder is filled with stones, with wall echo shadow complex present. The common bile duct measures 3 mm. The visualized pancreas, aorta, and IVC are unremarkable. Impression: Cholelithiasis, as detailed above. Reviewed, dictated and finalized at location M. Impression: Cholelithiasis, as detailed above.
== END 2024-10-27 08:10 | disposition home or self-care (01) ==
DX: R10.11 Right upper quadrant pain (principal); K80.20 Calculus of gallbladder without cholecystitis without obstruction
CPT/HCPCS: 76705